=== PATIENT | male | born 1935 | race Caucasian/White ===

== ENCOUNTER 2016-08-25 05:47 | Day surgery (SDC) | payer OTHER, MEDICARE ==
[~2016-08-25] VITALS: Ht 188 cm; Wt 87.5 kg
[~2016-08-25 05:47] MED LIST: ASPIRIN81 M2 PO; CELEBREX 200 M200 M1 PO; CENTRUM SILVER1 EAC2 PO; CO Q-10100 MG PO; COREG CR80 MG PO; CRESTOR40 MG PO; FINASTERIDE5 MG PO; FISH OIL 1,001000 M2 PO; FLOMAX0.4 MG PO; GINKGO BILOBA500 MG PO; HYDROCHLOROTH12.5 M1 PO; IRON325 PO; OSTEO BI-FLEX1 EAC1 PO; PANTOPRAZOLE SO40 M1 PO; PERINDOPRIL ERBU8 MG PO; RESVERATROL100 MG PO; TRIAZOLAM0.25 MG PO; TYLENOL325 MG PO; VALIUM5 MG PO; VITAMIN D1000 UNI1 PO
[2016-08-25 12:06] LABS: HEMATOCRIT 43.4 % (42.0-52.0); HEMOGLOBIN 15.3 gm/dL (14.0-18.0); MCH 32.7 pg (26.0-34.0); MCHC 35.2 g/dL (28.0-37.0); MCV 92.9 fL (80.0-100.0); RBC 4.67 mil/uL (4.50-6.00); RDW 13.4 % (10.5-14.5); WBC 4.1 thou/uL (4.0-11.0)
[2016-08-25 12:14] LABS: CALCIUM 8.6 mg/dL (8.5-10.1); CREATININE 1.1 mg/dL (0.7-1.3); POTASSIUM 3.7 mmol/L (3.5-5.1)
[2016-08-25 12:30] VITALS: BP 136/76
[2016-08-25] MEDS ORDERED: NORCO 5-325 TA1 EACH PO (15:13)
[2016-08-25 15:33] VITALS: BP 136/76
== END 2016-08-25 16:20 | disposition home or self-care (01) ==
LOC: OR 05:47 → TBA 05:48 → OR 10:22
PROVIDERS: Surgery
DX: K40.90 Unilateral inguinal hernia, without obstruction or gangrene, not specified as recurrent (principal); I10 Essential (primary) hypertension; E78.00 Pure hypercholesterolemia, unspecified; N40.0 Benign prostatic hyperplasia without lower urinary tract symptoms; Z85.46 Personal history of malignant neoplasm of prostate; Z98.890 Other specified postprocedural states; Z79.899 Other long term (current) drug therapy; Z88.8 Allergy status to other drugs, medicaments and biological substances
CPT/HCPCS: 50010; 50101; 50411; 50507; 50555; 50848; 53065; 53307; 56525; 56526; 62110; 62900; 70005

== ENCOUNTER → 2018-04-13 | Outpatient (CLI) | payer OTHER, MEDICARE ==
[~2018-04-13] VITALS: Ht 188 cm; Wt 86.2 kg
[~2018-04-13] MED LIST changes: +ASA5UEC PO; +HALCION0.25 MG PO; +NORCO 5-325 TA1 EACH PO; +PROTONIX40 M1 PO; +RESTORIL30 MG PO; +TRAMADOL 50 MG50 MG PO; +TYLENOL EXTRA500 MG PO
--- NOTE | ~2018-04-13 | HPC ---
[facility] [place] [address] PAIN MANAGEMENT CONSULTATION Name: LATESHACLIFFORD Shobha PEACOCK [facility] [id number] Admission: 04/13/18 Attend Phys: Maxime Price MD Discharge: Date of : 39 Report #: [id number] THIS REPORT FOR: //name// CC: Basil Price DATE OF SERVICE: 04/13/2018 CHIEF COMPLAINT: Followup visit for lumbar spondylosis, post-laminectomy syndrome. The patient returns to pain clinic today for repeat epidural injection. Although, his pain relief was not great, it was notable and was of good duration. He had pain relief for nearly 2 months after his epidural injection performed at L4-L5. He is here today to discuss a repeat injection. He says that his pain is enough that it limits his ability to stand or walk for very long. Three to four minutes has him looking for a chair. When he is able to get off his feet, the pain seems to improve pretty quickly. I gave him some tramadol as a trial and I was pleased to see that a single tablet provided pain relief for all day. In fact, he reported that after he took a tramadol, he felt better for more than a single day. This of course is well beyond the pharmacokinetic properties of the drug, but he had no side effects and I think it would be a useful medicine for him to have on hand if necessary for severe pain. There are no contraindications to its use by reviewing his medications. He does have diazepam and temazepam and Halcion on his list of medicines. He is not on an SSRI. PQRS review is completed. He has no documented evidence of osteoarthritis, but some degenerative changes are expected for age. He scores his pain intensity on a daily basis at a 5-6/10. He has fallen once in the last 3 months, but appears stable. I would consider him a fall risk because of his age and his back problems. He is on no blood thinning medications, takes no medications for hypertension and does not take opioids beyond a small amount of p.r.n. tramadol. He is considered a low risk for addiction by the opioid risk tool that we perform on each patient. He does not use tobacco or alcohol. PHYSICAL EXAMINATION: GENERAL: He is a very pleasant, well-spoken gentleman. VITAL SIGNS: Blood pressure is 138/82, heart rate 71, respirations 16. BMI 24.4. EXTREMITIES: He is able to independently move from sitting to standing position, but has bent over posture and cannot straighten up without discomfort. He reports that after his epidural, he was able to do so. [address] [address] PAIN MANAGEMENT CONSULTATION Name: CLIFFORD CHARLTON Room #: REG [facility].#: [id number] Admission: 04/13/18 Attend Phys: Maxime Price MD Discharge: Date of : 39 Report #: [id number] CHEST: Clear. CARDIAC: His cardiac rhythm is regular. There is tenderness across the scar and into his lumbosacral region. He denies pain into the hips at this time. Straight leg raising is negative for sensation, no changes or pain. IMPRESSION: Post-laminectomy syndrome. 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 PLAN: Epidural steroid injection L4-L5 under fluoroscopic guidance. I plan to use a slightly higher volume of medication in an injectate today with hopes that we will cover a broader area and provide a longer duration of response. PROCEDURE: He was taken to fluoroscopic suite, placed prone, skin prepped with ChloraPrep. Skin anesthetized over the L4-L5 interspace and a 20-gauge Tuohy epidural needle advanced first attempt in the epidural space with loss of resistance technique. There was no blood or CSF aspirated. 1 mL of Omnipaque was injected. Good spread of dye was observed into the epidural space, was followed by 6 mL of 0.5% lidocaine mixed with 80 mg of triamcinolone. He tolerated the procedure well and was observed for 45 minutes and discharged. Followup visit planned in the pain clinic as needed. By: [id number] Maxime Price MD /nt
[2018-04-13 13:10] VITALS: BP 138/82
--- NOTE | 2018-04-13 13:37 | NUR ---
Pain Clinic Assessment: 1. History of Osteoarthritis: History of Rheumatoid Arthritis: 2. Height: 6 ft. 2 in. 188.0 cm. Weight: 190.0 lb. oz. 86.184 kg. Patient's BMI: 24.4 3. Vital Signs: BP: 138/82 Pulse: 71 Resp: 16 Temp: 02 Sat: 96 ECG Mon: 4. Pain Intensity: 5-6 5. Fall Risk: Dizziness: N Needs help standing or walking: N Fallen in the last 3 months: Y Fall risk comments: 6. Patient on Blood Thinner: None 7. History of Hypertension: N 8. Opioid Therapy greater than 6 weeks: N Opiate Contract Signed: 9. Risk Assessment Tool Provided: LOW 10. Functional Assessment Tool: 11. Recreational Drug Use: Never Drug Type: Tobacco Use: Never Smoker Tobacco Type: Amount or Packs/day: How Many Years: Alcohol Use: No Frequency: Quant:
== END | disposition home or self-care (01) ==
LOC: PAIN 07:08
DX: M54.16 Radiculopathy, lumbar region (principal); M96.1 Postlaminectomy syndrome, not elsewhere classified; G89.29 Other chronic pain; Z88.8 Allergy status to other drugs, medicaments and biological substances; Z79.82 Long term (current) use of aspirin; Z79.899 Other long term (current) drug therapy

== ENCOUNTER → 2018-07-13 | Outpatient (CLI) | payer OTHER, MEDICARE ==
[~2018-07-13] VITALS: Ht 188 cm; Wt 89.7 kg
--- NOTE | ~2018-07-13 | HPC ---
[facility] [place] [address] PAIN MANAGEMENT CONSULTATION Name: CLIFFORD CHARLTON Room #: REG [facility].#: [id number] Admission: 07/13/18 ������������������ Attend Phys: Maxime Price MD Discharge: ������������������ Date of : 39 Report #: [id number] THIS REPORT FOR: //name// CC: Basil Price DATE OF SERVICE: 07/13/2018 Followup visit for lumbar spondylosis, post-laminectomy syndrome with radiculopathy. The patient returned to the pain clinic today. We had about 15-20 minutes [id number] consultation, discussion about chronic pain. He had a number of thoughts and questions and I tried to provide some insight into the underlying pain generators for an 83-year-old gentleman. Although he has remained active and fit, he does have degenerative conditions throughout and his low back problems along with the post-laminectomy changes have conspired to cause lumbar radiculopathy as well as pain across the low back. He reports today that his pain is mostly in his back, although he does have some leg pain. He scores it as a 7/10. It is an aching, throbbing sensation, worse with standing and walking. Medications were reviewed and reconciled; there have been no changes. He has had taken some tramadol with benefit. I provided initial prescription for him of this in March. He also uses Tylenol Extra Strength. He has taken some diazepam for muscle spasm safely in combination. He is not a fall risk nor has he fallen recently. He has no hypertension nor is he on blood thinner. He has completed a risk assessment tool for addiction with opioids and is considered extremely low risk. He is not on an opioid agreement. He denies the use of tobacco or alcohol. PHYSICAL EXAMINATION: GENERAL: He is a bright 83-year-old. VITAL SIGNS: Six feet 2 inches, 197 pounds and BMI is 25.4. Blood pressure is 143/72, heart rate 70 and respirations 16. MUSCULOSKELETAL: He moves from a sitting to standing position, ambulates without too much discomfort. He has pain across the low back. He has some pain with forward flexion and extension and mild positive straight leg raising. This causes pain mostly across the low back, but he has some radiating pain into the hips today. IMPRESSION: Chronic low back pain with spondylosis, post-laminectomy syndrome with mild radiculopathy. [facility] [address] [place] [address] PAIN MANAGEMENT CONSULTATION Name: CLIFFORD CHARLTON [id number] Admission: 07/13/18 ������������������ Attend Phys: Maxime Price MD Discharge: ������������������ Date of : 39 Report #: [id number] RECOMMENDATIONS: Epidural steroid injection; this has been helpful in the past. PROCEDURE: He was taken to the fluoroscopic suite, placed prone. Skin prepped with ChloraPrep. Skin anesthetized over the L4-L5 interspace. A 20-gauge Tuohy epidural needle advanced in the epidural space with loss of resistance technique. No blood or CSF was aspirated. A 1 mL of Omnipaque was injected. Good spread of dye observed in the epidural space, followed by 3 mL of 0.5% lidocaine mixed with 80 mg of triamcinolone. He tolerated the procedure well, was observed in the recovery room for 45 minutes and discharged. Before his discharge, we talked about the fact that much of his pain is related to facet arthropathy as well. He has significant changes of degeneration with the disk throughout the lumbar spine, which would cause malalignment and discomfort. I talked to him about some medial branch nerve blocks and perhaps proceeding on to radiofrequency ablation. He was quite interested in this therapy and will pursue this in followup visit. ��������������������������������������������� ���������������������������������������� By: ��������������������������������������������� [id number] Maxime Price MD /nt
[2018-07-13 12:45] VITALS: BP 143/72
--- NOTE | 2018-07-13 12:50 | NUR ---
Pain Clinic Assessment: 1. History of Osteoarthritis: HANDS History of Rheumatoid Arthritis: Not Applicable 2. Height: 6 ft. 2 in. 188.0 cm. Weight: 197.8 lb. oz. 89.722 kg. Patient's BMI: 25.4 3. Vital Signs: BP: 143/72 Pulse: 70 Resp: 16 Temp: 02 Sat: 96 ECG Mon: 4. Pain Intensity: 7 5. Fall Risk: Dizziness: N Needs help standing or walking: N Fallen in the last 3 months: N Fall risk comments: 6. Patient on Blood Thinner: None 7. History of Hypertension: N 8. Opioid Therapy greater than 6 weeks: N Opiate Contract Signed: 9. Risk Assessment Tool Provided: LOW 10. Functional Assessment Tool: 11. Recreational Drug Use: Never Drug Type: Tobacco Use: Never Smoker Tobacco Type: Amount or Packs/day: How Many Years: Alcohol Use: No Frequency: Quant:
== END | disposition home or self-care (01) ==
LOC: PAIN 06:55
DX: M47.26 Other spondylosis with radiculopathy, lumbar region (principal); M96.1 Postlaminectomy syndrome, not elsewhere classified; G89.29 Other chronic pain; Z88.2 Allergy status to sulfonamides; Z88.8 Allergy status to other drugs, medicaments and biological substances; Z79.82 Long term (current) use of aspirin; Z79.899 Other long term (current) drug therapy; Z98.890 Other specified postprocedural states

== ENCOUNTER → 2019-09-20 | Outpatient (CLI) | payer OTHER, MEDICARE | LOC: SJCVC 13:41 | PROVIDERS: ATTEND Internal Medicine Cardiovascular Disease | DX: R94.31 Abnormal electrocardiogram [ECG] [EKG] (principal); I45.10 Unspecified right bundle-branch block; I44.0 Atrioventricular block, first degree; I49.1 Atrial premature depolarization; E78.00 Pure hypercholesterolemia, unspecified; I10 Essential (primary) hypertension; I65.23 Occlusion and stenosis of bilateral carotid arteries; I35.1 Nonrheumatic aortic (valve) insufficiency; Z79.899 Other long term (current) drug therapy; Z87.891 Personal history of nicotine dependence ==

== ENCOUNTER → 2019-11-08 | Outpatient (CLI) | payer OTHER, MEDICARE ==
[~2019-11-08] VITALS: Ht 188 cm; Wt 88.3 kg
[~2019-11-08] MED LIST changes: +ASA81BEC PO
[2019-11-08 12:43] VITALS: BP 139/85
--- NOTE | 2019-11-08 13:05 | NUR ---
Pain Clinic Assessment: 1. History of Osteoarthritis: HANDS BACK History of Rheumatoid Arthritis: Not Applicable 2. Height: 6 ft. 2 in. 188.0 cm. Weight: 194.6 lb. oz. 88.270 kg. Patient's BMI: 25.0 3. Vital Signs: BP: 139/85 Pulse: 84 Resp: 16 Temp: 02 Sat: 100 ECG Mon: 4. Pain Intensity: 4 5. Fall Risk: Dizziness: N Needs help standing or walking: N Fallen in the last 3 months: Y Fall risk comments: 6. Patient on Blood Thinner: None 7. History of Hypertension: N 8. Opioid Therapy greater than 6 weeks: N Opiate Contract Signed: 9. Risk Assessment Tool Provided: LOW 10. Functional Assessment Tool: 11. Recreational Drug Use: Never Drug Type: Tobacco Use: Never Smoker Tobacco Type: Amount or Packs/day: How Many Years: Alcohol Use: No Frequency: Quant:
== END | disposition home or self-care (01) ==
LOC: PAIN 06:45
PROVIDERS: ATTEND Anesthesiology Pain Medicine
DX: M54.16 Radiculopathy, lumbar region (principal); G89.29 Other chronic pain; Z98.890 Other specified postprocedural states; Z79.899 Other long term (current) drug therapy

== ENCOUNTER → 2020-02-06 | Outpatient (CLI) | payer OTHER, MEDICARE | LOC: SJCVCIMAG 08:22 | PROVIDERS: ATTEND Internal Medicine Cardiovascular Disease | DX: I08.8 Other rheumatic multiple valve diseases (principal); I25.10 Atherosclerotic heart disease of native coronary artery without angina pectoris; I10 Essential (primary) hypertension; E78.5 Hyperlipidemia, unspecified; Z79.899 Other long term (current) drug therapy ==

== ENCOUNTER → 2020-09-15 | Outpatient (CLI) | payer OTHER, MEDICARE ==
[~2020-09-15] VITALS: Ht 188 cm; Wt 82.6 kg
[~2020-09-15] MED LIST changes: +NEURONTIN100 MG PO; +PROTONIX40 M2 PO
[2020-09-15 14:43] VITALS: BP 92/62
--- NOTE | 2020-09-15 15:33 | NUR ---
Pain Clinic Assessment: 1. History of Osteoarthritis: HANDS BACK History of Rheumatoid Arthritis: Not Applicable 2. Height: 6 ft. 2 in. 188.0 cm. Weight: 182.0 lb. oz. 82.555 kg. Patient's BMI: 23.4 3. Vital Signs: BP: 92/62 Pulse: 73 Resp: 18 Temp: 02 Sat: 100 ECG Mon: 4. Pain Intensity: 4-8 5. Fall Risk: Dizziness: Y Needs help standing or walking: N Fallen in the last 3 months: N Fall risk comments: 6. Patient on Blood Thinner: None 7. History of Hypertension: N 8. Opioid Therapy greater than 6 weeks: N Opiate Contract Signed: 9. Risk Assessment Tool Provided: LOW 10. Functional Assessment Tool: 11. Recreational Drug Use: Never Drug Type: Tobacco Use: Never Smoker Tobacco Type: Amount or Packs/day: How Many Years: Alcohol Use: No Frequency: Quant:
== END ==
LOC: PAIN 08-04 07:06
PROVIDERS: ATTEND Anesthesiology Pain Medicine
DX: B02.29 Other postherpetic nervous system involvement (principal); Z79.891 Long term (current) use of opiate analgesic; Z79.899 Other long term (current) drug therapy; Z88.8 Allergy status to other drugs, medicaments and biological substances; Z88.2 Allergy status to sulfonamides

== ENCOUNTER → 2020-10-15 | Outpatient (CLI) | payer OTHER, MEDICARE | LOC: SJCVC 15:44 | PROVIDERS: ATTEND Internal Medicine Cardiovascular Disease | DX: I25.10 Atherosclerotic heart disease of native coronary artery without angina pectoris (principal); I10 Essential (primary) hypertension; E78.00 Pure hypercholesterolemia, unspecified; I65.23 Occlusion and stenosis of bilateral carotid arteries; I35.1 Nonrheumatic aortic (valve) insufficiency; Z88.8 Allergy status to other drugs, medicaments and biological substances; Z79.82 Long term (current) use of aspirin; Z79.899 Other long term (current) drug therapy; Z87.891 Personal history of nicotine dependence ==

== ENCOUNTER → 2021-02-02 | Outpatient (CLI) | payer OTHER, MEDICARE | LOC: SJCVCIMAG 07:29 | PROVIDERS: ATTEND Internal Medicine Cardiovascular Disease | DX: I08.8 Other rheumatic multiple valve diseases (principal); I77.810 Thoracic aortic ectasia; I25.10 Atherosclerotic heart disease of native coronary artery without angina pectoris ==